=== PATIENT | male | born 1980 | race Caucasian/White ===

== ENCOUNTER 2017-01-15 07:14 | Emergency (ER) | payer OTHER ==
[~2017-01-15] VITALS: Ht 167.6 cm; Wt 86.2 kg
[2017-01-15 07:25] VITALS: BP 141/96
--- NOTE | 2017-01-15 07:45 | ED.ADGEN ---
Adult General Chief Complaint Chief Complaint: HEADACHE HPI HPI Patient is a 36 year old man, with no significant past no history, who presents to the emergency department with a complaint of right-sided earache, headache, and nosebleed. Patient states he was first evaluated for right-sided ear "humming noise" about a month ago by his primary care provider. At that time there was concern for otitis media, patient was initiated on doxycycline. He took a full course, and follow-up with his doctor, his symptoms had not improved, and he now developed ear pain. Patient was initiated on Keflex, and is currently completing a course of Keflex. He states that the coming noise is not present at this time, but he has had worsening right-sided ear pain, and now developed a right-sided headache, and has had 2 episodes of bleeding out of the left Damon this week, will once earlier this week, and once last night. Both episodes stopped with pressure. Patient has a history of otitis media as a child , did not receive your tubes, denies any sore throat, any rhinorrhea, any allergy type symptoms, denies any vision changes, any weakness numbness or tingling in the face, any difficulty with swallowing or breathing, any chest pain, any fevers or chills, any injuries. He states that he took acetaminophen prior to going to the ED, this time his headache is improved. Described as an aching sensation located on the right side of the head. No temporal tenderness. Patient works as an ICU nurse at [employer]. His primary care provider is Dr. Lin. Patient has not been evaluated by ENT at this time. Review of Systems Review of Systems Constitutional: Denies fever or chills. [] Eyes: Denies change in visual acuity. [] HENT: Denies nasal congestion or sore throat on a complaining of right ear pain , coming noise, right-sided headache, and left-sided epistaxis. Respiratory: Denies cough or shortness of breath. [] Cardiovascular: Denies chest pain or edema. [] GI: Denies abdominal pain, nausea, vomiting, bloody stools or diarrhea. [] : Denies dysuria. [] Musculoskeletal: Denies back pain or joint pain. [] Integument: Denies rash. [] Neurologic: Denies focal weakness or sensory changes. Headache. Endocrine: Denies polyuria or polydipsia. [] Lymphatic: Denies swollen glands. [] Psychiatric: Denies depression or anxiety. [] Allergies Allergies Allergies Coded Allergies Type Severity Reaction Last Updated Verified Penicillins Allergy Mild 01/15/17 Yes Physical Exam Physical Exam Constitutional: Well developed, well nourished, no acute distress, non-toxic appearance. [] HENT: Normocephalic, atraumatic, bilateral external ears normal, oropharynx moist, no oral exudates, patient with mild injection of the oropharynx, mild postnasal drip, patient noted have turbinates swelling on the left, with a smaller dried blood in the naris, right nasal examination is unremarkable. Right ear noted to have small effusion, with small amount of scarring, there is no erythema, no evidence of perforation or drainage. External ear is normal. Left ear is unremarkable. No temporal tenderness, normal eye examination. Eyes: PERRLA, EOMI, conjunctiva normal, no discharge. [] Neck: Normal range of motion, no tenderness, supple, no stridor. [] Cardiovascular:Heart rate regular rhythm, no murmur, S1, S2, rubs or gallops. [] Lungs & Thorax: Bilateral breath sounds clear to auscultation no wheezing, rhonchi, rales. [] Abdomen: Bowel sounds normal, soft, no tenderness, no masses, no pulsatile masses. [] Skin: Warm, dry, no erythema, no rash. [] Back: No tenderness, no CVA tenderness. [] Extremities: No tenderness, no cyanosis, no clubbing, ROM intact, no edema. [ Negative Homans sign.] Neurologic: Alert and oriented X 3, normal motor function, normal sensory function, no focal deficits noted. [] Psychologic: Affect normal, judgement normal, mood normal. [] Current Patient Data Vital Signs Vital Signs Date Time Temp Pulse Resp B/P Pulse Ox O2 Delivery O2 Flow Rate FiO2 01/15/17 07:25 97.8 87 18 141/96 97 Room Air 97.8 Lab Values Laboratory Tests Test 01/15/17 07:30 White Blood Count 5.9x10^3/uL (4.0-11.0) Red Blood Count 5.48x10^6/uL (4.30-5.70) Hemoglobin 16.4g/dL (13.0-17.5) Hematocrit 48.5% (39.0-53.0) Mean Corpuscular Volume 89fL (79-100) Mean Corpuscular Hemoglobin 30pg (25-35) Mean Corpuscular Hemoglobin Concent 34g/dL (31-37) Red Cell Distribution Width 13.6% (11.5-14.5) Platelet Count 290x10^3/uL (140-400) Neutrophils (%) (Auto) 39% (31-73) Lymphocytes (%) (Auto) 50% (24-48) H Monocytes (%) (Auto) 8% (0-9) Eosinophils (%) (Auto) 2% (0-3) Basophils (%) (Auto) 1% (0-3) Neutrophils # (Auto) 2.3x10^3uL (1.8-7.7) Lymphocytes # (Auto) 3.0x10^3/uL (1.0-4.8) Monocytes # (Auto) 0.5x10^3/uL (0.0-1.1) Eosinophils # (Auto) 0.1x10^3/uL (0.0-0.7) Basophils # (Auto) 0.1x10^3/uL (0.0-0.2) Sodium Level 142mmol/L (136-145) Potassium Level 4.0mmol/L (3.5-5.1) Chloride Level 102mmol/L (98-107) Carbon Dioxide Level 30mmol/L (21-32) Anion Gap 10 (6-14) Blood Urea Nitrogen 15mg/dL (8-26) Creatinine 0.9mg/dL (0.7-1.3) Estimated GFR (Cockcroft-Gault) 95.0 Glucose Level 99mg/dL (70-99) Calcium Level 9.1mg/dL (8.5-10.1) Laboratory Tests 01/15/17 07:30 Laboratory Tests 01/15/17 07:30 EKG EKG Not indicated. [] Radiology/Procedures Radiology/Procedures [] [facility] [address] [place], [place] [id number] IMAGING REPORT Signed PATIENT: KAYKAY DOBBS ACCOUNT: [id number] : 1980 LOCATION: ER AGE: 36 SEX: M EXAM STATUS: REG ER ORD. PHYSICIAN: SLAVA KNIGHT DO REASON: BULL/R ear pain PROCEDURE: CT HEAD WO CONTRAST CT HEAD WITHOUT CONTRAST History: 36-year-old male with headaches, right ear pain, nose bleeds for 3 months. Comparison: None. Procedure: Axial images are obtained of the head from the skull base through the vertex without IV contrast. One or more of the following individualized dose reduction techniques were utilized for this examination: 1. Automated exposure control 2. Adjustment of the mA and/or kV according to patient size 3. Use of iterative reconstruction technique Findings: Rivas-white matter differentiation is preserved. The ventricles and sulci are normal for the patient's age.. No mass-effect, midline shift, hemorrhage or obvious acute infarction is identified. Basilar cisterns are patent. Bone windows demonstrate no significant calvarial abnormality.The visualized paranasal sinuses appear clear. Mastoid air cells are well aerated. IMPRESSION: No acute intracranial abnormality. DICTATED and SIGNED BY: EMILE SANCHEZ MD DATE: 01/15/17807 CC: SLAVA KNIGHT DO; NEWTON AVILA MD ~ Course & Med Decision Making Course & Med Decision Making Pertinent Labs and Imaging studies reviewed. (See chart for details) after examination and discussion at bedside, we'll proceed with head CT, as patient's conversation with his primary care provider indicates to be the next step, I also discussed follow-up with ENT with the patient. He states that this time his headache symptoms are controlled after taking Tylenol, he is not currently experiencing epistaxis, is afebrile in the emergency department and otherwise well-appearing. Head CT does not reveal any evidence acutely concerning findings , findings and examination as stated are consistent with likely allergic versus viral inflammation of the turbinates and oropharynx, with some fullness of the left ear with a small effusion, no evidence of other concerning findings. Patient has 2 days left of his current antibiotic course, instructed to continue his anorexia directed by his primary care provider, and to follow-up with ENT. Patient is agreeable with this plan, and was contact information for Dr. Hadley of otolaryngology, plan to contact her office today to schedule an appointment, given clear and detailed return instructions with which she voiced understanding and agreement. Patient discharged home in stable condition, plan to continue the medications as prescribed for his primary care provider, including Flonase, to add loratadine or sertraline as discussed, to follow-up with ENT, and to return to the ED if needed. Dragon Disclaimer Dragon Disclaimer This electronic medical record was generated, in whole or in part, using a voice recognition dictation system. Departure Impression: Primary Impression: Ear pain, right Additional Impression: Headache Disposition: 01 HOME, SELF-CARE Condition: IMPROVED Problem Qualifiers SLAVA KNIGHT DO Jan 15, 2017 07:45
[2017-01-15 08:06] LABS: BASO # 0.1 x10^3/uL (0.0-0.2); BASO % 1 % (0-3); EOS % 2 % (0-3); HEMATOCRIT 48.5 % (39.0-53.0); HEMOGLOBIN 16.4 g/dL (13.0-17.5); LYMPH % 50 % (24-48); MEAN CORPUSCULAR HEMOGLOBIN 30 pg (25-35); MEAN CORPUSCULAR HGB CONC 34 g/dL (31-37); MEAN CORPUSCULAR VOLUME 89 fL (79-100); MONO % 8 % (0-9); NEUT % 39 % (31-73); PLATELET COUNT 290 x10^3/uL (140-400); RED BLOOD COUNT 5.48 x10^6/uL (4.30-5.70); RED CELL DISTRIBUTION WIDTH 13.6 % (11.5-14.5); WHITE BLOOD COUNT 5.9 x10^3/uL (4.0-11.0)
[2017-01-15 08:12] LABS: CALCIUM 9.1 mg/dL (8.5-10.1); CREATININE 0.9 mg/dL (0.7-1.3)
--- NOTE | 2017-01-15 08:13 | RAD ---
CT HEAD WITHOUT CONTRAST History: 36-year-old male with headaches, right ear pain, nose bleeds for 3 months. Comparison: None. Procedure: Axial images are obtained of the head from the skull base through the vertex without IV contrast. One or more of the following individualized dose reduction techniques were utilized for this examination: 1. Automated exposure control 2. Adjustment of the mA and/or kV according to patient size 3. Use of iterative reconstruction technique Findings: Rivas-white matter differentiation is preserved. The ventricles and sulci are normal for the patient's age.. No mass-effect, midline shift, hemorrhage or obvious acute infarction is identified. Basilar cisterns are patent. Bone windows demonstrate no significant calvarial abnormality.The visualized paranasal sinuses appear clear. Mastoid air cells are well aerated. IMPRESSION: No acute intracranial abnormality.
== END 2017-01-15 09:00 | disposition home or self-care (01) ==
LOC: ER 07:14
DX: H92.01 Otalgia, right ear (principal); R51 Headache; R04.0 Epistaxis; Z88.0 Allergy status to penicillin
CPT/HCPCS: 36415; 70450; 80048; 85027; 99285-25

== ENCOUNTER → 2019-03-30 | Outpatient (CLI) | payer OTHER ==
[2019-03-30 07:43] LABS: ALBUMIN 4.3 g/dL (3.4-5.0); ALBUMIN/GLOBULIN RATIO 1.3 (1.0-1.7); CALCIUM 9.1 mg/dL (8.5-10.1); GFR 83.2; POTASSIUM 4.1 mmol/L (3.5-5.1); TOTAL BILIRUBIN 0.5 mg/dL (0.2-1.0); TOTAL PROTEIN 7.5 g/dL (6.4-8.2)
[2019-03-30 07:47] LABS: CHOLESTEROL/HDL RATIO 4.1
== END | disposition home or self-care (01) ==
LOC: NM 02:11
PROVIDERS: ATTEND Family Medicine
DX: Z13.220 Encounter for screening for lipoid disorders (principal); F41.9 Anxiety disorder, unspecified
CPT/HCPCS: 36415; 80053; 80061; 84436; 84443

== ENCOUNTER → 2019-04-08 | Outpatient (CLI) | payer OTHER ==
--- NOTE | 2019-04-08 15:37 | KCIC ---
Scrotal ultrasound 04/08/2019 CLINICAL HISTORY: History of epididymal cyst. TECHNIQUE: Using a combination of real-time ultrasound imaging and color-flow and pulse Doppler imaging techniques, duplex evaluation of scrotal sac and its contents was performed. Multiple images were obtained. FINDINGS: Comparison study is dated 05/30/2014. Both testicles are within normal limits in size and echogenicity. The right testicle measures 4.9 x 3.0 x 2.8 cm in longitudinal, transverse, and AP dimensions. The left testicle measures 4.3 x 3.3 x 2.9 cm in size. No focal abnormality of either testicle is seen. Normal color-flow and pulse Doppler imaging to both testicles is noted. A 1.2 cm cyst is seen involving the right epididymal head. This is unchanged. A 3 mm cyst is seen involving the scrotal wall near the right testicle. 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 It is unchanged. The left epididymal head is within normal limits. There are small bilateral hydroceles. No varicocele is seen. IMPRESSION: 1. Stable sonographic appearance of the 1.4 cm cyst involving the right epididymal head. 2. Stable sonographic appearance of the 3 mm tunica albuginea cyst involving the right scrotum. 3. Small bilateral hydroceles. Electronically signed by: Oswald Bay MD (04/08/2019 3:34 PM) [place] [id number]
== END | disposition home or self-care (01) ==
LOC: KCIC US 13:06
PROVIDERS: ATTEND Family Medicine
DX: N43.3 Hydrocele, unspecified (principal); N50.3 Cyst of epididymis
CPT/HCPCS: 76870

== ENCOUNTER 2019-09-03 15:11 | Emergency (ER) | payer OTHER ==
[~2019-09-03] VITALS: Ht 167.6 cm; Wt 77.1 kg
[2019-09-03 15:37] VITALS: BP 112/74
[2019-09-03] MEDS ORDERED: DEXAMETHASONE 4 MG TABLET PO STA (15:44)
--- NOTE | 2019-09-03 15:51 | PHYS DOC ---
Past Medical History Past Medical History: No Pertinent History Past Surgical History: No Surgical History Alcohol Use: Occasionally Drug Use: None Adult General Chief Complaint Chief Complaint: SORE THROAT HPI HPI Patient is a 39 year old male who presents with sore throat this been ongoing since this weekend. He states that he's also been having runny nose, congestion. He's had some chills as well. He is unsure if he's been having fevers. No other complaints. Review of Systems Review of Systems Constitutional: Denies fever or chills [] Eyes: Denies change in visual acuity, redness, or eye pain [] HENT: Reports nasal congestion, runny nose, and sore throat. Respiratory: Reports cough. Cardiovascular: No additional information not addressed in HPI [] GI: Denies abdominal pain, nausea, vomiting, bloody stools or diarrhea [] : Denies dysuria or hematuria [] Musculoskeletal: Denies back pain or joint pain [] Integument: Denies rash or skin lesions [] Neurologic: Denies headache, focal weakness or sensory changes [] Endocrine: Denies polyuria or polydipsia [] Complete systems were reviewed and found to be within normal limits, except as documented in this note. Current Medications Current Medications Current Medications Medications (Trade) Dose Ordered Sig/Karl Start Time Stop Time Status Last Admin Dose Admin Dexamethasone (Decadron) 10 mg 1X STAT 09/03/19 15:44 09/03/19 15:46 DC Allergies Allergies Allergies Coded Allergies Type Severity Reaction Last Updated Verified Penicillins Allergy Mild 01/15/17 Yes Physical Exam Physical Exam Constitutional: Well developed, well nourished, no acute distress, non-toxic appearance. [] HENT: Normocephalic, atraumatic, bilateral external ears normal, bilateral tympanic membranes are unremarkable, oropharynx moist, tonsils are 1+/4 with no oral exudates, nose turbinates inflamed. Eyes: PERRLA, EOMI, conjunctiva normal, no discharge. [] Neck: Normal range of motion, no tenderness, supple, no stridor. [] Cardiovascular:Heart rate regular rhythm, no murmur [] Lungs & Thorax: Bilateral breath sounds clear to auscultation [] Abdomen: Bowel sounds normal, soft, no tenderness, no masses, no pulsatile m asses. [] Skin: Warm, dry, no erythema, no rash. [] Back: No tenderness, no CVA tenderness. [] Extremities: No tenderness, no cyanosis, no clubbing, ROM intact, no edema. [] Neurologic: Alert and oriented X 3, normal motor function, normal sensory function, no focal deficits noted. [] Psychologic: Affect normal, judgement normal, mood normal. [] Current Patient Data Vital Signs Vital Signs Date Time Temp Pulse Resp B/P (MAP) Pulse Ox O2 Delivery O2 Flow Rate FiO2 09/03/19 15:37 98.3 84 16 112/74 (87) 96 Room Air 98.3 EKG EKG [] Radiology/Procedures Radiology/Procedures [] Course & Med Decision Making Course & Med Decision Making Pertinent Labs and Imaging studies reviewed. (See chart for details) Appears to be having upper respiratory infection that has causes post nasal drip. Will give Decadron to help sore throat. Dragon Disclaimer Dragon Disclaimer This electronic medical record was generated, in whole or in part, using a voice recognition dictation system. Departure Departure Impression: Primary Impression: Upper respiratory infection, viral Disposition: 01 HOME, SELF-CARE Condition: STABLE Referrals: NEWTON AVILA MD (PCP) Patient Instructions: Upper Respiratory Infection, Adult Additional Instructions: Thank you for visiting [facility]. We appreciate you trusting us with your care. If any additional problems come up don't hesitate to return to visit us. Please follow up with your primary care provider so they can plan additional care if needed and know about the problem that you had. If symptoms worsen come back to the Emergency Department. Any concerning symptoms that start such as chest pain, shortness of air, weakness or numbness on one side of the body, running high fevers or any other concerning symptoms return to the ER. Please start taking Zyrtec, Flonase, and Mucinex per label instructions. DANIELLE ARIAS APRN Sep 03, 2019 15:51
== END 2019-09-03 16:00 | disposition home or self-care (01) ==
LOC: ER 15:11
DX: J06.9 Acute upper respiratory infection, unspecified (principal); Z88.0 Allergy status to penicillin
CPT/HCPCS: 99282; J8540

== ENCOUNTER 2019-09-22 04:56 | Emergency (ER) | payer OTHER ==
[~2019-09-22] VITALS: Ht 167.6 cm; Wt 77.1 kg
[2019-09-22 05:00] VITALS: BP 125/89
[2019-09-22] MEDS ORDERED: CLIN300C8 PO (05:20)
--- NOTE | 2019-09-22 05:20 | PHYS DOC ---
Past Medical History Past Medical History: No Pertinent History Past Surgical History: No Surgical History Alcohol Use: None Drug Use: None Adult General Chief Complaint Chief Complaint: Toothache HPI HPI Patient is a 39-year-old male who presents secondary to a toothache. He states his tooth has been hurting for a couple of days he had someone look at it tonight and noted that surrounding gingival tissue was swollen and red. He denies any fever. He denies trismus.[] Review of Systems Review of Systems HENT: Per history of present illness[] All other systems were reviewed and found to be within normal limits, except as documented in this note. Allergies Allergies Allergies Coded Allergies Type Severity Reaction Last Updated Verified Penicillins Allergy Mild 01/15/17 Yes Physical Exam Physical Exam Constitutional: Well developed, well nourished, no acute distress, non-toxic appearance. [] HENT: Left lower molar carious with surrounding gingival erythema. [] Eyes: PERRLA, EOMI, conjunctiva normal, no discharge. [] Neck: Normal range of motion, no tenderness, supple, no stridor. [] Current Patient Data Vital Signs Vital Signs Date Time Temp Pulse Resp B/P (MAP) Pulse Ox O2 Delivery O2 Flow Rate FiO2 09/22/19 05:00 98.2 81 16 125/89 (101) 98 Room Air 98.2 EKG EKG [] Radiology/Procedures Radiology/Procedures [] Course & Med Decision Making Course & Med Decision Making Pertinent Labs and Imaging studies reviewed. (See chart for details) [] Dragon Disclaimer Dragon Disclaimer This electronic medical record was generated, in whole or in part, using a voice recognition dictation system. Departure Departure Impression: Primary Impression: Pain, dental Disposition: 01 HOME, SELF-CARE Condition: STABLE Referrals: NEWTON AVILA MD (PCP) Patient Instructions: Dental Pain Scripts Clindamycin Hcl (CLINDAMYCIN HCL) 300 Mg Capsule 1 CAP PO TID for Infection, #30 CAP Prov: CATRACHITO VIDAL DO 09/22/19 CATRACHITO VIDAL DO Sep 22, 2019 05:20
== END 2019-09-22 06:00 | disposition home or self-care (01) ==
LOC: ER 04:56
DX: K08.89 Other specified disorders of teeth and supporting structures (principal); L53.9 Erythematous condition, unspecified; Z88.0 Allergy status to penicillin
CPT/HCPCS: 99283

== ENCOUNTER → 2020-05-16 | Outpatient (CLI) | payer OTHER ==
[~2020-05-16] MED LIST: CLIN300C8 PO
== END | disposition home or self-care (01) ==
LOC: LAB 03:43
PROVIDERS: ATTEND Internal Medicine Pulmonary Disease
DX: R53.81 Other malaise (principal); R19.7 Diarrhea, unspecified; Z20.828 Contact with and (suspected) exposure to other viral communicable diseases
CPT/HCPCS: U0003-CS

== ENCOUNTER → 2021-02-02 | Outpatient (CLI) | payer OTHER ==
[~2021-02-02] MED LIST changes: -CLIN300C8 PO; +CLIN300C9 PO
[2021-02-02 11:48] LABS: BASO % 1 % (0-3); EOS # 0.1 x10^3/uL (0.0-0.7); EOS % 1 % (0-3); HEMOGLOBIN 16.8 g/dL (13.0-17.5); LYMPH % 47 % (24-48); MEAN CORPUSCULAR HEMOGLOBIN 31 pg (25-35); MEAN CORPUSCULAR HGB CONC 35 g/dL (31-37); MEAN CORPUSCULAR VOLUME 89 fL (79-100); MONO # 0.4 x10^3/uL (0.0-1.1); MONO % 10 % (0-9); NEUT # 1.7 x10^3/uL (1.8-7.7); NEUT % 41 % (31-73); PLATELET COUNT 278 x10^3/uL (140-400); RED CELL DISTRIBUTION WIDTH 13.7 % (11.5-14.5); WHITE BLOOD COUNT 4.3 x10^3/uL (4.0-11.0)
[2021-02-02 12:05] LABS: ALBUMIN 4.4 g/dL (3.4-5.0); ALBUMIN/GLOBULIN RATIO 1.5 (1.0-1.7); CALCIUM 9.2 mg/dL (8.5-10.1); CREATININE 0.9 mg/dL (0.7-1.3); POTASSIUM 4.6 mmol/L (3.5-5.1); TOTAL BILIRUBIN 0.3 mg/dL (0.2-1.0); TOTAL PROTEIN 7.4 g/dL (6.4-8.2)
== END ==
LOC: LAB 11:25
PROVIDERS: ATTEND Family Medicine
DX: R20.2 Paresthesia of skin (principal)
CPT/HCPCS: 36415; 80053; 82306; 82607; 82746; 84436; 84443; 85025